=== PATIENT | female | born 1975 | race Caucasian/White ===

== ENCOUNTER 2017-09-01 13:58 | Emergency (ER) | payer OTHER ==
[~2017-09-01] VITALS: Ht 165.1 cm; Wt 72.6 kg
[~2017-09-01 13:58] MED LIST: AMITIZA24 MICROGR PO; BUPROPION XL300 MG PO; CELEXA20 MG PO; CREON 241 CAPSULE PO; Creon 24 PO; DURAGESIC1 EAC1 TD; FENTANYL1 EAC3 TD; FENTANYL1 EAC5 TD; FLEXERIL10 MG PO; Marinol PO; OXYCODONE HCL30 MG PO; OXYCODONE HCL5 MG PO; OxyCODONE PO; PHENERGAN12.5 M1 PO; PROTONIX40 MG PO; QUETIAPINE FUM200 MG PO; SEROQUEL100 MG PO; ZOFRAN4 MG PO
[2017-09-01 16:22] LABS: HEMOGLOBIN 13.3 G/DL (11.9-15.5); MCH 29.5 PG (29.0-34.0); MCHC 34.1 G/DL (30.0-36.0); MCV 86.5 FL (83-99); PLATELET COUNT 300 K/uL (156-360); RBC DIS.WIDTH-SD 44.6 % (39-53); RED BLOOD COUNT 4.51 M/uL (3.80-5.20)
[2017-09-01 18:17] LABS: ALBUMIN 4.4 g/dL (3.2-4.8); CHLORIDE 107 mEq/L (99-109); POTASSIUM 4.8 mEq/L (3.7-5.4); SODIUM 140 mEq/L (136-147)
[2017-09-01 18:20] LABS: GLUCOSE 118 mg/dL (70-99); TOTAL PROTEIN 7.1 g/dL (6.4-8.3)
[2017-09-01 18:22] LABS: TOTAL BILIRUBIN 0.4 mg/dL (0.0-1.0)
[2017-09-01 18:23] LABS: ALKALINE PHOSPHATASE 82 IU/L (3-129); CREATININE 1.2 mg/dL (0.6-1.3); GFR ESTIMATE (CALCULATED) 52 mL/min/
[2017-09-01 18:24] LABS: UREA NITROGEN (BUN) 14 mg/dL (9-23)
[2017-09-01 18:25] LABS: AST (GOT) 28 IU/L (2-34)
[2017-09-01 18:26] LABS: ALT (GPT) 13 IU/L (3-49)
[2017-09-01 18:27] LABS: LIPASE 9 U/L (1.0-51.0)
[2017-09-01 21:20] LABS: APPEARANCE CLEAR ((CLEAR)); BILIRUBIN NEGATIVE; BLOOD NEGATIVE; COLOR YELLOW ((YELLOW)); GLUCOSE (STRIP) NEGATIVE; KETONES 5; LEUKOCYTES NEGATIVE; NITRITE NEGATIVE; PROTEIN (STRIP) 30; SPECIFIC GRAVITY 1.058 (1.000-1.030); UCUL ADDED? NO; UROBILINOGEN 0.2 MG/DL (0.2-1.0)
[2017-09-01] MEDS ORDERED: PHENERGAN25 MG PR (21:41)
[2017-09-01 22:10] VITALS: BP 136/71
== END 2017-09-01 22:26 | disposition home or self-care (01) ==
LOC: EME 13:58
PROVIDERS: Nurse Practitioner Family
DX: R10.84 Generalized abdominal pain (principal); R11.10 Vomiting, unspecified; G89.29 Other chronic pain; K21.9 Gastro-esophageal reflux disease without esophagitis; I10 Essential (primary) hypertension; Z90.49 Acquired absence of other specified parts of digestive tract; Z86.73 Personal history of transient ischemic attack (TIA), and cerebral infarction without residual deficits; Z88.5 Allergy status to narcotic agent; Z88.0 Allergy status to penicillin; Z87.891 Personal history of nicotine dependence
CPT/HCPCS: 74177; 80053; 81003; 83690; 85027; 99281; 99285; J0780; J1630; J2765; J3010; J7120; S0028

== ENCOUNTER → 2017-10-04 | Emergency (ER) | payer OTHER ==
[~2017-10-04] VITALS: Ht 162.6 cm; Wt 69.0 kg
[~2017-10-04] MED LIST changes: +BENTYL20 MG PO; +PHENERGAN25 MG PR
[2017-10-04 17:19] LABS: HEMOGLOBIN 13.7 G/DL (11.9-15.5); MCHC 34.3 G/DL (30.0-36.0); MCV 87.7 FL (83-99); PLATELET COUNT 338 K/uL (156-360); RBC DIS.WIDTH-CV 13.9 % (11.8-14.6); RBC DIS.WIDTH-SD 44.8 % (39-53); RED BLOOD COUNT 4.56 M/uL (3.80-5.20); WHITE BLOOD COUNT 20.1 K/uL (4.1-10.2)
[2017-10-04 17:39] LABS: ALBUMIN 4.7 g/dL (3.2-4.8); CHLORIDE 108 mEq/L (99-109); POTASSIUM 3.8 mEq/L (3.7-5.4); SODIUM 142 mEq/L (136-147)
[2017-10-04 17:41] LABS: GLUCOSE 132 mg/dL (70-99); TOTAL PROTEIN 7.5 g/dL (6.4-8.3)
[2017-10-04 17:43] LABS: TOTAL BILIRUBIN 0.6 mg/dL (0.0-1.0)
[2017-10-04 17:45] LABS: ALKALINE PHOSPHATASE 90 IU/L (3-129); CREATININE 1.6 mg/dL (0.6-1.3); GFR ESTIMATE (CALCULATED) 37 mL/min/
[2017-10-04 17:46] LABS: UREA NITROGEN (BUN) 9 mg/dL (9-23)
[2017-10-04 17:47] LABS: AST (GOT) 22 IU/L (2-34)
[2017-10-04 17:48] LABS: ALT (GPT) 13 IU/L (3-49)
[2017-10-04 17:54] LABS: QUANTITATIVE HCG < 4.0 MIU/ML
[2017-10-04 19:45] LABS: LIPASE 9 U/L (1.0-51.0)
[2017-10-04 20:11] LABS: APPEARANCE CLOUDY ((CLEAR)); BILIRUBIN NEGATIVE; BLOOD NEGATIVE; COLOR AMBER ((YELLOW)); GLUCOSE (STRIP) NEGATIVE; KETONES 20; LEUKOCYTES NEGATIVE; NITRITE NEGATIVE; PROTEIN (STRIP) 100; SPECIFIC GRAVITY 1.027 (1.000-1.030); UROBILINOGEN 0.2 MG/DL (0.2-1.0)
[2017-10-04 20:35] LABS: BACTERIA RARE /HPF; CALCIUM OXALATE CRYSTALS 3+ /HPF; EPITHELIAL CELLS RARE /HPF; HYALINE CASTS 30-40 /LPF; MUCUS 1+ /LPF; RED BLOOD CELLS 0-5 /HPF (0-5); UCUL ADDED? YES
[2017-10-04 20:57] LABS: ERTH.SED.RATE 16 MM/HR (0-20)
[2017-10-04 21:12] VITALS: BP 00/00
== END | disposition home or self-care (01) ==
LOC: EME 16:33
DX: R10.9 Unspecified abdominal pain (principal); R11.2 Nausea with vomiting, unspecified; G89.29 Other chronic pain; R05 Cough; E86.0 Dehydration; Z90.49 Acquired absence of other specified parts of digestive tract; Z90.710 Acquired absence of both cervix and uterus; Z86.73 Personal history of transient ischemic attack (TIA), and cerebral infarction without residual deficits
CPT/HCPCS: 71046; 74176; 80053; 81003; 83605; 83690; 84702; 85027; 85651; 87040; 87086; 99281; 99285; J0500; J1630; J2270; J2405; J7030